=== PATIENT | female | born 1950 | race Caucasian/White ===

== ENCOUNTER 2018-07-03 01:48 | Emergency (ER) | payer MEDICARE, OTHER ==
[~2018-07-03] VITALS: Ht 157.5 cm; Wt 89.8 kg
[2018-07-03 01:55] VITALS: Ht 157.5 cm; Wt 89.8 kg
[2018-07-03] MEDS ORDERED: SOD CHLORIDE 0.9% 1,000 ML IV STA (02:32)
[2018-07-03] MEDS ORDERED: ONDANSETRON 4 MG INJ IV STA (02:32)
[2018-07-03] MEDS ORDERED: morphine 4 MG/ML VIAL IV STA (02:32)
[2018-07-03] MEDS ORDERED: METOCLOPRAMIDE 10 MG INJ IV ONE (04:30)
[2018-07-03] MEDS ORDERED: ONDA4TAB14 PO (04:52)
[2018-07-03] MEDS ORDERED: TRAM50TA2 PO (04:52)
--- NOTE | 2018-07-03 04:54 | ERD ---
ER Documentation Chief Complaint Chief Complaint ABD PAIN SINCE 2229; X 2 VOMIT HPI 67-year-old female comes in with abdominal pain since 2229. He vomited twice. Nonbilious nonbloody. No fevers no chills. No other current complaints ROS All systems reviewed and are negative except as per history of present illness. Medications Home Meds Active Scripts Ondansetron (Ondansetron Odt) 4 Mg Tab.rapdis, 4 MG PO Q6H PRN for NAUSEA AND/OR VOMITING, #10 TAB Prov:FARIBA CARRINGTON 07/03/18 Tramadol HCl (Tramadol HCl) 50 Mg Tablet, 50 MG PO Q4 PRN for PAIN, #20 TAB Prov:FARIBA CARRINGTON. 07/03/18 Allergies Allergies: Coded Allergies: No Known Allergy (Unverified , 07/03/18) Physical Exam Vitals Vital Signs Date Temp Pulse Resp B/P (MAP) Pulse Ox O2 O2 Flow FiO2 Time Delivery Rate 07/03/18 97.9 74 24 150/84 100 01:55 (106) Physical Exam Const: No acute distress Head: Atraumatic Eyes: Normal Conjunctiva ENT: Normal External Ears, Nose and Mouth. Neck: Full range of motion. No meningismus. Resp: Clear to auscultation bilaterally Cardio: Regular rate and rhythm, no murmurs Abd: Soft, non tender, non distended. Normal bowel sounds Skin: No petechiae or rashes Back: No midline or flank tenderness Ext: No cyanosis, or edema Neur: Awake and alert Psych: Normal Mood and Affect Result Diagram: 07/03/18 0255 07/03/18 0255 Results 24 hrs Laboratory Tests Test 07/03/18 02:55 White Blood Count 11.1 10^3/ul Red Blood Count 4.55 10^6/ul Hemoglobin 12.5 g/dl Hematocrit 38.2 % Mean Corpuscular Volume 84.0 fl Mean Corpuscular Hemoglobin 27.5 pg Mean Corpuscular Hemoglobin Concent 32.7 g/dl Red Cell Distribution Width 13.3 % Platelet Count 253 10^3/UL Mean Platelet Volume 9.7 fl Immature Granulocytes % 0.400 % Neutrophils % 75.6 % Lymphocytes % 17.5 % Monocytes % 4.8 % Eosinophils % 1.0 % Basophils % 0.7 % Nucleated Red Blood Cells % 0.0 /100WBC Immature Granulocytes # 0.040 10^3/ul Neutrophils # 8.4 10^3/ul Lymphocytes # 2.0 10^3/ul Monocytes # 0.5 10^3/ul Eosinophils # 0.1 10^3/ul Basophils # 0.1 10^3/ul Nucleated Red Blood Cells # 0.0 10^3/ul Sodium Level 140 mmol/L Potassium Level 3.7 mmol/L Chloride Level 102 mmol/L Carbon Dioxide Level 26 mmol/L Anion Gap 12 Blood Urea Nitrogen 28 mg/dl Creatinine 0.83 mg/dl Est Glomerular Filtrat Rate mL/min > 60 mL/min Glucose Level 152 mg/dl Calcium Level 9.8 mg/dl Total Bilirubin 0.1 mg/dl Direct Bilirubin 0.00 mg/dl Indirect Bilirubin 0.1 mg/dl Aspartate Amino Transf (AST/SGOT) 23 IU/L Alanine Aminotransferase (ALT/SGPT) 24 IU/L Alkaline Phosphatase 107 IU/L Total Protein 7.7 g/dl Albumin 4.4 g/dl Globulin 3.30 g/dl Albumin/Globulin Ratio 1.33 Lipase 69 U/L Current Medications Medications Dose Sig/Jessica Start Time Status Last (Trade) Ordered Route PRN Stop Time Admin Dose Reason Admin Sodium 1,000 ml @ Q1H STAT 07/03/18 DC 07/03/18 Chloride 1,000 mls/hr IV 02:32 03:00 07/03/18 03:31 Morphine 4 mg ONCE STAT 07/03/18 DC 07/03/18 Sulfate IV 02:32 03:00 (morphine) 07/03/18 02:33 Ondansetron 4 mg ONCE STAT 07/03/18 DC 07/03/18 HCl (Zofran IV 02:32 03:00 Inj) 07/03/18 02:33 5 mg ONCE ONCE 07/03/18 DC 07/03/18 Metoclopramid IV 04:30 04:22 e HCl 07/03/18 04:31 (Reglan) Procedures/[facility] Medical statement: 67-year-old female comes in with abdominal pain. She has evidence of gallstones with no evidence of cholecystitis. At this point her pain is resolved and is tolerating p.o. She is stable for outpatient management. Patient will be discharged home and has been asked to follow-up in 8 hours for serial abdominal exams. No evidence of surgical abdomen at this time. Departure Diagnosis: Primary Impression: Abdominal pain Abdominal location: unspecified location Qualified Codes: R10.9 - Unspecified abdominal pain Condition: Stable Patient Instructions: Abdominal Pain, Gallstones FARIBA CARRINGTON Jul 03, 2018 04:54
[2018-07-03 05:00] VITALS: BP 142/80; PULSE 65; RESP 16
== END 2018-07-03 05:20 | disposition home or self-care (01) ==
LOC: E/R 01:48
DX: R10.9 Unspecified abdominal pain (principal)
CPT/HCPCS: 36415; 74176; 80053; 83690; 85025; 96374; 96375; 99285; J2270; J2405; J2765; J7030